=== PATIENT | female | born 1945 | race Caucasian/White ===

== ENCOUNTER 2020-03-22 07:51 | Day surgery (SDC) | payer MEDICARE, OTHER ==
[~2020-03-22] VITALS: Ht 152.4 cm; Wt 64.0 kg
[~2020-03-22 07:51] MED LIST: ACID CONTROLLER10 MG PO; ACTEMRA400 MG/20 IV; ADVIL LIQUI-GE200 MG PO; CALTRATE 600 +1 EAC1 PO; DAILY MULTIPLE1 EACH PO; FOLIC ACID20 MG PO; HYDROCODON-ACE1 EA11 PO; IRON18 MG PO; IRON325 M1 PO; LEUCOVORIN CALCI5 MG PO; METHOTREXATE2.5 MG PO; MIRALAX17 GM PO; NUCYNTA50 MG PO; ONDANSETRON HCL4 MG PO; PLAQUENIL200 MG PO; REMICADE100 MG/10 IV; TART CHERRY CA1 EACH PO; TURMERIC500 MG PO; VITAMIN C500 M1 PO; XARELTO10 MG PO; ZANTAC150 MG PO
[2020-03-22] MEDS ORDERED: PLAQUENIL200 MG PO (08:40)
--- NOTE | 2020-03-22 14:00 | NUR ---
03/22/20 1400 Lisa Bernstein 1350 PATIENT ARRIVES TO PACU AWAKE BUT DROWSY. RESP EVEN AND UNLABORED, MASK AT 6 LITERS. PATIENT C/O "A LITTLE PAIN." UNABLE TO RATE ON PAIN SCALE, DENIES PAIN MEDS AT THIS TIME. PATIENT DENIES NAUSEA.
[2020-03-22] MEDS ORDERED: OXYCODON-ACETA1 EAC2 PO (14:16)
[2020-03-22] MEDS ORDERED: ACETAMINOPHEN500 MG PO (14:16)
[2020-03-22] MEDS ORDERED: IBUPROFEN600 MG PO (14:16)
--- NOTE | 2020-03-22 14:35 | NUR ---
PATIENT BACK IN DAY SURGERY ROOM FROM PACU. C/O PAIN 6/10 IN RIGHT BREAST. DECLINES PAIN MEDICATION AT THIS TIME. RIGHT BREAST DRESSING CDI. IV SITE WNL. SCDs ON. TOLERATING WATER. AT BEDSIDE. CALL LIGHT WITHIN REACH.
--- NOTE | 2020-03-22 15:06 | NUR ---
1450: PATIENT ASSISTED UP TO BEDSIDE COMMODE WITH 2 PERSON ASSIST. VOID WITHOUT DIFFICULTY. ASSISTED BACK TO BED WITH 2 PERSON ASSIST. CONTINUES TO RATE PAIN 6/10. DECLINES PAIN MEDICATION. IV SALINE LOCKED. TOLERATING WATER. AT BEDSIDE. CALL LIGHT WITHIN REACH.
--- NOTE | 2020-03-22 16:21 | NUR ---
1540: VS CHECKED. RATES PAIN 6/10. DECLINES PAIN MEDICATION. RIGHT BREAST DRESSING WITH SMALL AMOUNT OF RED DRAINAGE. PATIENT ASSISTED UP TO BEDSIDE COMMODE WITH 1 PERSON ASSIST. PATIENT TRANSFERRED BACK TO BED INDEPENDENTLY. 1545: PATIENT ASSISTED OOB AND TO WALK IN HALLWAY. GAIT STEADY. PATIENT STATES SHE FEELS READY TO GO HOME. 1610: PATIENT ASSISTED TO GET DRESSED. DISCHARGE INSTRUCTIONS GIVEN TO PATIENT AND . IV DC'D WNL. TIP INTACT. DRESSING APPLIED. PATIENT DISCHARGED TO HOME WITH VIA WHEELCHAIR.
--- NOTE | 2020-03-23 16:02 | OR ---
[facility] [address] [place], [place] [address] Signed DATE OF OPERATION: 03/22/2020 SURGEON: Nevin Luna MD PREOPERATIVE DIAGNOSIS: Right upper outer quadrant invasive lobular carcinoma. POSTOPERATIVE DIAGNOSES: 1. Right upper outer quadrant invasive lobular carcinoma. 2. Negative sentinel lymph node frozen pathology. PROCEDURES: 1. Injection of methylene blue for sentinel lymph node identification. 2. Deep axillary sentinel lymph node biopsies x4. 3. Needle localized partial mastectomy, right upper outer quadrant of breast. ANESTHESIA: General endotracheal; Nevin Frederick CRNA INDICATION: This 74-year-old white woman is a patient of Miles Andre of [place], [place]. The patient is identified as having an abnormal mammogram in the upper outer aspect on the right side and underwent image-guided biopsy by Dr. Butcher on February 16, 2020, confirming an invasive lobular carcinoma, grade 2/3 without associated lymphovascular invasion and no associated in situ component. Estrogen receptor was negative as was progesterone receptor, HER-2/alex receptors are pending. There is no palpable mass. She does have family history of breast cancer and her mother at age 34 of the disease. Her underlying other medical issues are dominantly that of rheumatoid arthritis and self described scleroderma. She is admitted at this time to undergo a needle localized excision of the non-palpable invasive lobular carcinoma as well as sentinel lymph node biopsy and possible axillary dissection depending on pathologic findings. The risks of bleeding, infection, cosmetic deformity, need for open procedure, and known intention to have radiation therapy postoperatively were all discussed and well understood by the patient and her . They wished to proceed. FINDINGS: Localization with the wire by the radiologist, Dr. Butcher was good. The wire emanated Electronically Signed By: NEVIN LUNA MD 03/23/20 1602 PATIENT NAME: CRISTIANE CHARLES OPERATIVE REPORT DATE OF : 47 REPORT #: [id number] PHYSICIAN: NEVIN LUNA MD PCP: MILES ANDRE PA-C REPORT IS CONFIDENTIAL AND NOT TO BE RELEASED WITHOUT AUTHORIZATION [facility] [address] [place], [place] [address] Signed from the lateral right breast. There was good radionuclide uptake to 4 areas considered sentinel lymph node tissue and good uptake of methylene blue dye to at least one of the lymph nodes. Frozen pathology confirmed all lymph node and lymph node like tissue to be negative for metastatic disease. Specimen radiograph confirmed that the marker placed at the time of initial biopsy was in the excised specimen and a nodule corresponding to the lesion was identified as well. DESCRIPTION OF PROCEDURE: The patient was brought to the operating room after being received from radiology suite with the wire emanating from the lateral aspect of the right breast. She was given a general endotracheal anesthetic. Preoperative antibiotic Ancef was given and sequential compression device stockings were used and heparin subcutaneously administered. I injected 2 mL of methylene blue dye in the subdermal and subepithelial space in the upper aspect of the right breast. The wire from localization exited from the lateral aspect of the breast. The breast and axillary area on the right side were prepared with a Betadine spray solution and draped sterilely. A C-Trak gamma probe device was placed in its sterile sheaths and interrogation of the right axilla undertaken. The area of dominant uptake was not too far from where the wire emanated from the breast itself. A small transverse incision was made there. Using blunt and electrocautery dissection, dissection of the deep axillary space undertaken. The probe had guided the area of incision to maximal radionuclide uptake. Soon upon dissection, blue lymphatic channels were identified and they were followed to an aggregate collection of blue dye corresponding to sentinel lymph node #1. This area was dissected free and clearly showed a normal clinically non-suspect sentinel lymph node and this was passed as sentinel lymph node #1. Further evaluation of the axilla showed additional uptake and with various techniques of dissection, tissue was excised. Three additional aggregates of radial nuclide intensity was excised, 2 of which corresponded to small lymph nodes. All frozen pathology determinations by Dr. Russo, pathologist showed no sign of metastatic disease to the axillary lymph nodes. Once there was no further radionuclide activity by gamma probe or blue dye uptake, the right axilla was packed with plain gauze. Attention was turned towards excision of the primary tumor. A separate incision was made closer to the end point of the wire (medial breast). An incision was made along the line of skin tension. Dissection carried through the dermis with electrocautery and blunt dissection ultimately identifying the wire. The parenchyma of the breast was secured with an Allis clamp in continuity with the wire and using electrocautery dissection technique, wide excision was undertaken. Special care was taken to correspond the excision with the images that were available from the localization. The specimen was oriented. Sutures passed laterally, superiorly, deeply, and appropriately labeled. The specimen radiograph was performed, which confirmed that the marker was included in the excised specimen and the nodule responded to the lesion was also Electronically Signed By: NEVIN LUNA MD 03/23/20 1602 PATIENT NAME: CRISTIANE CHARLES OPERATIVE REPORT DATE OF : 47 REPORT #: [id number] PHYSICIAN: NEVIN LUNA MD PCP: MILES ANDRE PA-C REPORT IS CONFIDENTIAL AND NOT TO BE RELEASED WITHOUT AUTHORIZATION [facility] [address] [facility] [place], [place] [address] Signed completely excised according to the radiologist, Dr. Butcher. Electrocautery was used to secure hemostasis in the breast excision cavity. Irrigation was undertaken and examination of the right axilla additionally undertaken in similar efforts. Hemostasis assured with electrocautery and clips as necessary. By this point, all intended reports from the radiologist and pathologist were complete, attention was turned towards closure. The parenchyma of the right breast was reapproximated with interrupted 2-0 Vicryl. The skin closed with running subcuticular 3-0 Vicryl. Similar closure in the right axilla was undertaken. Cosmesis was considered good, though there was certainly a defect in the upper outer and lateral aspect of the right breast. Steri-Strips were applied as was a silver sponge dressing. She was ultimately extubated and transferred to the recovery room in good condition having suffered no complications. Sponge, needle, and instrument counts were correct x3. MD WHIT De La Rosa/IRVINL /[id number] cc: MD Miles Mederos PA Copies: CYNDEE BUTCHER MD ~ Electronically Signed By: NEVIN LUNA MD 03/23/20 1602 PATIENT NAME: CRISTIANE CHARLES OPERATIVE REPORT DATE OF : 47 REPORT #: [id number] PHYSICIAN: NEVIN LUNA MD PCP: MILES ANDRE PA-C REPORT IS CONFIDENTIAL AND NOT TO BE RELEASED WITHOUT AUTHORIZATION
--- NOTE | 2020-03-29 17:28 | PATH ---
[facility] [address] [facility] [place], [place] [address] Signed SPECIMEN(S): A SENTINEL LYMPH NODE 1 SPECIMEN(S): B SENTINEL LYMPH NODE 2 SPECIMEN(S): C SENTINEL LYMPH NODE 3 SPECIMEN(S): D SENTINEL LYMPH NODE 4 SPECIMEN(S): E RIGHT BREAST SPECIMEN SOURCE: A. SENTINEL LYMPH NODE 1 B. SENTINEL LYMPH NODE 2 C. SENTINEL LYMPH NODE 3 D. SENTINEL LYMPH NODE 4 E. RIGHT BREAST CLINICAL HISTORY: Lobular carcinoma right breast. E) Long stitch=lateral; double=deep; short=superior. Specimen Time to Fixation- 03/22/2020 1:58:00 PM FINAL PATHOLOGIC DIAGNOSIS: A. Dana lymph node #1, right axilla, excisional biopsy: - Four lymph nodes with no evidence of malignancy (0/4). - See comment. B. Dana lymph node #2, right axilla, excisional biopsy: - One lymph node with no evidence of malignancy (0/1). - See comment. C. Dana lymph node #3, right axilla, excisional biopsy: - One lymph node with no evidence of malignancy (0/1). - See comment. D. Dana lymph node #4, right axilla, excisional biopsy: - Two lymph nodes with no evidence of malignancy (0/2). - See comment. E. Breast, right, lumpectomy: - Invasive lobular carcinoma with the following features: - Tumor site: 11 o'clock. - Tumor size: 1.0 x 0.9 x 0.6 cm. - Histologic type: Invasive lobular carcinoma. - Histologic grade (Clinton histologic score): - Glandular (acinar)/tubular differentiation: Score 3. - Nuclear pleomorphism: Score 2. - Mitotic rate: Score 1. PATIENT NAME: CRISTIANE CHARLES PATHOLOGY DATE OF : 47 REPORT #: [id number] PHYSICIAN: SILAS PATHOLOGY PCP: MILES ANDRE PA-C REPORT IS CONFIDENTIAL AND NOT TO BE RELEASED WITHOUT AUTHORIZATION [facility] [address] [place], [place] [address] Signed - Overall grade: Grade II (total score 6 of 9). - Tumor focality: Single focus of invasive carcinoma. - Ductal carcinoma in situ (DCIS): Not identified. - Lobular carcinoma in situ (LCIS): Present. - Margins: Uninvolved by invasive carcinoma. - Distance from margins: - Posterior: 0.7 mm. - Superior: 6.5 mm. - Anterior: 10 mm. - Inferior, medial, and lateral margins: Greater than 10 mm. - Regional lymph nodes: Uninvolved by tumor cells. - Total number of lymph nodes examined: 9. - Number of sentinel lymph nodes examined: 8. - Treatment effect in the breast: No known pre-surgical therapy. - Lymphovascular invasion: Not identified. - Other findings: One additional benign lymph node (0/1), breast tissue with fibrocystic change, fat necrosis, and biopsy site changes. - Breast biomarker studies: Please refer to previously performed studies ([id number], 02/16/2020) which were reported as ER negative, NH negative, HER2 negative by IHC, and Ki-67 proliferation index of 13%. - Pathologic stage classification (pTMN, AJCC 8th ed.): pT1b pN0. COMMENT: As part of [facility] Quality Improvement Program, this case was reviewed by another member of our pathology staff. Immunohistochemical stains (with appropriately staining controls) were performed. Pancytokeratin (AE1/AE3) stains were performed on agency sales representative sections of the sentinel lymph nodes (A1, B1, C1, D1) and confirm the absence of metastatic carcinoma. Pancytokeratin (AE1/AE3) stains were performed on agency sales representative sections of the invasive carcinoma (E7, E9) and confirm the negative, but close margin status of the posterior margin. An E-cadherin stain demonstrates loss of membranous staining in an area of atypical lobular expansion, confirming the presence of lobular neoplasia. NAL:cml:C1NR MICROSCOPIC EXAMINATION: Histologic sections of all submitted blocks are examined by light microscopy. These findings, together with the gross examination, support the pathologic PATIENT NAME: CRISTIANE CHARLES PATHOLOGY DATE OF : 47 REPORT #: [id number] PHYSICIAN: SILAS PATHOLOGY PCP: MILES ANDRE PA-C REPORT IS CONFIDENTIAL AND NOT TO BE RELEASED WITHOUT AUTHORIZATION [address] [address] Signed diagnosis. GROSS DESCRIPTION: Five specimens are received in five containers, labeled "JW." A. The specimen, labeled "JW, A," and designated on the requisition "sentinel #1 lymph node," is received in fresh for frozen section and consists of 1.7 x 1.5 x 0.7 cm piece of adipose tissue with a 1.2 x 1.2 x 0.6 cm lymph node. The lymph node is trisected and one-third of the lymph node is submitted for frozen section. The specimen container arrived to the gross room with three cassettes and an additional tissue piece without a cassette. The first cassette is labeled (FS1), the second cassette contains two pieces of tissue and sponges, and the third cassette contains one piece of tissue. The tissue piece without a cassette measures 1.3 x 1.0 x 0.4 cm. The specimen is submitted entirely as follows: Cassette Summary: (A1) Contents of cassette labeled (FS1) (Largest lymph node (1/3) (A2) Contents of second cassette that has sponges (A3) Contents of third cassette is without sponges (largest lymph node, 1/3) (A4) Tissue piece without a cassette (largest lymph node, 1/3) B. The specimen, labeled "JW, B," and designated on the requisition "sentinel #2 lymph node," is received fresh for frozen section and consists of a 1.2 x 1.2 x 0.4 cm, red-crabtree fibroadipose tissue piece. The lymph node is grossly identified. The specimen is entirely submitted for frozen section and the remainder of the tissue after frozen section is submitted for permanent in one cassette (B1). C. The specimen, labeled "JW, C," and designated on the requisition "sentinel #3 lymph node," is received fresh for frozen section and consists of a 1.5 x 1.5 x 0.3 cm cauterized, fibroadipose tissue piece with a 0.5 x 0.2 x 0.2 cm firm area. The specimen is entirely submitted for frozen section and the remainder of the tissue after frozen section is submitted for permanent in one cassette (C1). D. The specimen, labeled "JW, D," and designated on the requisition "sentinel #4 lymph node," is received fresh for frozen section and consists of a 1.4 x 1.4 x 0.5 cm piece of fat. No lymph nodes are grossly identified. The specimen is submitted entirely for frozen section and the remainder of the tissue after frozen section is submitted for permanent in one cassette (D1). BRIAN(under the direct supervision of a pathologist) PATIENT NAME: CRISTIANE CHARLES PATHOLOGY DATE OF : 47 REPORT #: [id number] PHYSICIAN: SILAS PATHOLOGY PCP: MILES ANDRE PA-C REPORT IS CONFIDENTIAL AND NOT TO BE RELEASED WITHOUT AUTHORIZATION [facility] [address] [place], [place] [address] Signed E. The specimen, labeled "JW," and designated on the requisition "right breast lumpectomy," is received in formalin and consists of an oriented lumpectomy (33 grams, 6.3 cm medial to lateral, 4.1 cm superior to inferior, and 3.1 cm anterior to posterior) with a short stitch marking the superior aspect, a long stitch marking the lateral aspect, and a double stitch marking the deep aspect. The specimen is inked as follows: Blue = superior Green = inferior Red = medial Marion = lateral Black = deep/posterior Yellow = anterior The specimen is serially sectioned from lateral to medial into 16 slices to reveal a firm white-crabtree ill-defined mass (1.0 x 0.9 x 0.6 cm) in slices 9-11 that is grossly 0.1 cm from the deep margin, 0.2 cm from the superior margin, 1.0 cm from the anterior margin, 1.8 cm in the inferior margin, 1.9 cm from the medial margin, and 2.5 cm from the lateral margin. The remaining cut surface shows yellow-crabtree soft fatty to fibrous tissue (less than 20% fibrous). Gross photographs are taken and uploaded into [employer]. Lathing Supervisor sections are submitted as follows: Cassette Summary) (E1) Slice1, lateral margin, perpendicular sections (E2) Slice 3 (E3) Slice 6 (E4) Slice 8 (E5-E6) Slice 9 with mass (E7-E8) Slice 10, bisected, with mass (E9-E10) Slice 11 with mass (E 11) Slice 12, fibrous area (E12) Slice 13, fibrous area (E 13) Slice 14, fibrous area (E 14) Slice 15, medial margin, perpendicular sections Cold ischemic time : less than 1 minute The specimen was fixed in formalin for approximately 76 hours 2 minutes FROZEN SECTION DIAGNOSES: A. Dana lymph node #1: No evidence of malignancy in agency sales representative section frozen. (Dr. Russo, 03/22/20, 1:18 PM) B. Dana lymph node #2:No evidence of malignancy in one lymph node. ( PATIENT NAME: CRISTIANE CHARLES PATHOLOGY DATE OF : 47 REPORT #: [id number] PHYSICIAN: SILAS PATHOLOGY PCP: MILES ANDRE PA-C REPORT IS CONFIDENTIAL AND NOT TO BE RELEASED WITHOUT AUTHORIZATION [facility] [address] [place], [place] [address] Signed Karan, 03/22/20, 1:45 PM) C. Dana lymph node #3:No evidence of malignancy in one lymph node. (Dr. Russo, 03/22/20, 1:26 PM) D. Dana lymph node #4: No evidence of malignancy in two lymph nodes. (Dr. Russo, 03/22/20, 1:37 PM) Frozen section diagnoses called to Dr. Moss. (under the direct supervision of a pathologist) The Gross Description was prepared using a voice recognition system. The report was reviewed for accuracy; however, sound-alike word errors, addition and/or deletions may occur. If there is any question about this report, please contact Client Services. ADDITIONAL NOTES: Immunohistochemical and/or in situ hybridization studies were performed on this case with the appropriate positive controls that react as expected. This test was developed and its performance characteristics determined by [facility]. It has not been cleared or approved by the U.S. Food and Drug Administration. The FDA has determined that such clearance or approval is not necessary. This test is used for clinical purposes. It should not be regarded as investigational or for research. [facility] is certified under the Clinical Laboratory Improvement Amendments of 1988 (CLIA) as qualified to perform high complexity clinical laboratory testing. PERFORMING LABORATORY: The technical component was performed by [facility], [address] [place] [id number] (Forepart Reducer: Leslie Serrano MD; CLIA# [id number]). [facility], [address] [place] [address] (CLIA# [id number]). Diagnostician: Evie Russo MD Pathologist Electronically Signed 03/29/2020 Copies: ~ PATIENT NAME: CRISTIANE CHARLES PATHOLOGY DATE OF : 47 REPORT #: [id number] PHYSICIAN: SILAS PATHOLOGY PCP: MILES ANDRE PA-C REPORT IS CONFIDENTIAL AND NOT TO BE RELEASED WITHOUT AUTHORIZATION
== END 2020-03-22 16:12 | disposition home or self-care (01) ==
LOC: OPS 07:51 → DS 07:51 → US 10:00 → OPS 10:00 → EDSTATUS 10:00 → OPS 16:12
PROVIDERS: ATTEND Surgery
PROC: 0HBT0ZZ Excision of Right Breast, Open Approach (ICD-10-PCS; principal; 2020-03-22 12:00)
DX: C50.411 Malignant neoplasm of upper-outer quadrant of right female breast (principal); Z17.1 Estrogen receptor negative status [ER-]; M06.9 Rheumatoid arthritis, unspecified; F41.9 Anxiety disorder, unspecified; K21.9 Gastro-esophageal reflux disease without esophagitis; G47.33 Obstructive sleep apnea (adult) (pediatric); Z88.8 Allergy status to other drugs, medicaments and biological substances; Z88.2 Allergy status to sulfonamides; Z79.899 Other long term (current) drug therapy
CPT/HCPCS: 00404; 00406; 19283; 38792; 76098; 88307; 88341; 88342; A9541; J0690; J1100; J1200; J1644; J1720; J1885; J2250; J2270; J2405; J2704; J2765; J3010; J7121; Q9968